=== PATIENT | male | born 1945 | race Caucasian/White ===

== ENCOUNTER 2019-03-19 21:31 | Inpatient (IN) ==
[2019-03-19] MEDS ORDERED: 0.9 % Sodium Chloride 1,000 ML IVC ONE ×2 (22:09→22:10)
--- NOTE | 2019-03-19 22:20 | Emergency Department Note ---
Disposition Clinical Impression: Dehydration, Hypotension, Acute kidney injury Disposition: Still a Patient Condition: Good Time of Disposition: 23:26 General Adult HPI - General Chief complaint: ED General Medical Stated complaint: low blood pressure Time Seen by Provider: 03/19/19 21:39 Source: patient Limitations: no limitations Nursing Notes Reviewed: Yes Vital Signs Reviewed: Yes - History of Present Illness HPI Narrative: Patient is a 74-year-old male who is presenting with weakness and low back press ure. Patient states that he does have history of hypertension, hyperlipidemia. He was outside today [place], he did this all morning, he states that following this he became very fatigued and weak, he states that he took his blood pressure earlier in the day and it was normal, he retook it this afternoon and it was noted to be 80-90 systolic over 50 diastolic. He states is very unusual for him. He does take a lisinopril hydrochlorothiazide medicine, he has been taking this in the morning, he has not taken extra doses. He denies any chest pain, shortness of breath, nausea, vomiting, abdominal pain, lightheaded or dizziness. He denies any syncope or recent trauma or head injury. He denies any recent change in his medications. He states that he has had similar symptoms to this in the past and has had this worked up from a cardiac standpoint and was all negative. Pain Scale: 0 - Related Data Home Medications Medication Instructions Recorded Confirmed Albuterol Sulfate [Proventil 2 puff IH QID PRN 08/24/16 03/20/19 Inhaler] Aspirin 81 mg PO DAILY 08/24/16 03/20/19 Fluticasone Propionate Nasal 2 spray NS DAILY 08/24/16 03/20/19 [Flonase] Lisinopril/Hydrochlorothiazide 1 tab PO QAM 08/24/16 03/20/19 [Zestoretic 20-25 mg Tablet] Methadone 20 mg PO TID 08/24/16 03/20/19 Naloxone [Narcan] 0.4 mg IM AD 08/24/16 03/20/19 Budesonide/Formoterol 160/4.5 2 puff IH BIDR 03/20/19 03/20/19 [Symbicort 160/4.5] Cholecalciferol (Vitamin D3) 1,000 unit PO DAILY 03/20/19 03/20/19 [Vitamin D3] Gabapentin [Neurontin] 1,200 mg PO TID 03/20/19 03/20/19 Ketoconazole Shampoo [Nizoral 1 appl TP Q72H 03/20/19 03/20/19 Shampoo] Magnesium Oxide [Magnesium] 600 mg PO HS 03/20/19 03/20/19 Melatonin 30 mg PO HS 03/20/19 03/20/19 Methadone 7.5 mg PO HS 03/20/19 03/20/19 Methadone 10 mg PO HS 03/20/19 03/20/19 Omeprazole [PriLOSEC] 20 mg PO DAILY 03/20/19 03/20/19 Propylene Glycol/Peg 400 [Systane 1 drop BOTH EYES QID PRN 03/20/19 03/20/19 0.3-0.4% Eye Drops] Sennosides/Docusate Sodium 2 tab PO QPM 03/20/19 03/20/19 [Docusate Sodium-Sennosides Tab] Sildenafil Citrate 100 mg PO AD PRN 03/20/19 03/20/19 Tiotropium [Spiriva] 18 mcg IH QAM 03/20/19 03/20/19 Allergies Allergy/AdvReac Type Severity Reaction Status Date / Time No Known Allergies Allergy Verified 03/20/19 20:58 Review of Systems: In addition to that documented in the HPI above, the additional ROS was obtained: General: Denies fever. Denies chills. Denies weight loss. Denies behavioral change. Affirms generalized fatigue. Eyes: Denies visual changes. ENT: Denies nasal congestion. Denies sore throat. Denies hearing change. Cardio: Denies chest pain. Denies palpitations. Respiratory: Denies cough. Denies shortness of breath. Denies wheezing. GI: Denies nausea, Denies vomiting, or diarrhea. Denies hematochezia denies melena. Denies abdominal pain. : Denies dysuria, hematuria, or urinary retention MSK: Denies back pain. Denies joint swelling. Neuro: Denies slurred speech. Denies numbness or tingling. Denies focal weakness. Denies headache. Denies loss of consciousness. Psych: Denies mood changes. Past Medical History - Past Medical History Medical history: Reports: COPD, hyperlipidemia, hypertension - Social History Smoking Status: Former smoker Smokeless Tobacco Status: No Alcohol use: Reports: none Drug use: Reports: none Physical Exam General: Conversant. No apparent distress. Follow commands. Appears stated age. Neck: No JVD. Trachea midline. Neck supple. Eyes: PERRL. No scleral icterus. HENT: Normocephalic and atraumatic. Moist mucus membranes. Cardiovascular: Regular rate and rhythm. Normal S1 and S2. No murmurs appreciated. Normal capillary refill. Extremities well perfused with 2+ distal pulses bilaterally. No edema. Pulmonary: Normal and equal breath sounds bilaterally, anteriorly and posteriorly. No wheezes, rales, or rhonchi. Not in respiratory distress. Speaks in full sentences. Abdomen: Soft, nondistended, without tenderness. No bruits or masses. No guarding or rebound. Neuro: Alert and oriented x3. No slurred speech. No focal deficits noted. Skin: No rashes noted on visualized skin. Musculoskeletal: No bony abnormalities visualized. Moves all extremities. Psych: Normal mood. Pleasant. Makes appropriate eye contact. - General Limitations: no limitations General appearance: alert Course Vital Signs Temperature 97.6 F 03/19/19 21:32 Pulse Rate 76 03/19/19 21:32 Respiratory Rate 18 03/19/19 21:32 Blood Pressure 100/61 03/19/19 21:32 O2 Sat by Pulse Oximetry 91 03/19/19 21:32 Temperature 97.6 F 03/19/19 21:56 Pulse Rate 65 03/19/19 22:52 Respiratory Rate 18 03/19/19 22:52 Blood Pressure 97/58 03/19/19 22:52 O2 Sat by Pulse Oximetry 95 03/19/19 22:52 Oxygen Delivery Oxygen Delivery Room Air Medical Decision Making - [facility] Narrative Medical decision making narrative: Patient is a 74-year-old male presenting with low blood pressure. 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 Checked his blood pressure later this evening and noted it to be low. He states this is very unusual for him, especially in the setting of fatigue. On arrival, patient does have a low blood pressure with a blood pressure in the room of 85/55, patient currently states that he has fatigue with lightheaded or dizziness, no chest pain or short of breath. Further vitals are otherwise unremarkable. Given patient's exertional activity today, CBC, BMP as well as a CK will be performed. He was also ordered 2 L normal saline. Patient otherwise in no acute distress on my examination. No further abnormality. Patient was signed out to Dr. Almazan and Dr. Shea at 2245, at this point in time, patient has gotten a total of 500 mL of fluid, his blood pressure has been slightly responsive at this point. He remains alert and oriented and stable at this time. Patient's blood work is currently pending. They will follow up on this and provide further management. Please refer to their MDM for disposition. Anticipate if the patient does have significantly elevated CPK, the patient will be admitted for further fluid hydration. - Medical Records Medical records reviewed: Yes I reviewed the patient's medical records. - Lab Data Lab results reviewed: Yes I reviewed the patient's lab results. Result diagrams: 03/21/19 02:48 03/22/19 00:20 Lab Results 03/19/19 03/19/19 Range/Units 22:37 22:37 WBC 11.3 H (4.3-11.1) K/mcL RBC 4.30 (4.19-5.50) M/mcL Hgb 12.6 L (12.9-16.9) g/dL Hct 40.0 (37.5-50.1) % MCV 93.0 (83.0-100.0) fL MCH 29.3 (28.0-33.3) pg MCHC 31.5 L (31.6-35.5) g/dL RDW 13.7 (11.5-14.5) % Plt Count 239 (140-400) K/mcL MPV 11.0 (9.4-12.4) fL Immature Gran % 0.4 (0-4) % Seg Neutrophils % 56.9 % Lymphocytes % 27.7 % Monocytes % 9.2 % Eosinophils % 4.7 % Basophils % 1.1 % Neutrophils # 6.5 (1.6-8.9) K/mcL Lymphocytes # 3.1 (0.6-4.6) K/mcL Monocytes # 1.0 (0.0-1.3) K/mcL Eosinophils # 0.5 (0.0-0.6) K/mcL Basophils # 0.1 (0.0-0.2) K/mcL Sodium 136 (136-145) mEq/L Potassium 3.6 (3.5-5.1) mEq/L Chloride 101 (98-107) mEq/L Carbon Dioxide 23 (23-29) mEq/L BUN 41 H (8-23) mg/dL Creatinine 2.52 H (0.70-1.30) mg/dL Est GFR ( Amer) 30 L (> 60) Est GFR (Non-Af Amer) 25 L (> 60) BUN/Creatinine Ratio 16 (6-26) Glucose 124 H (70-105) mg/dL Calculated Osmolality 294 (280-300) Calcium 8.9 (8.6-10.3) mg/dL Creatine Kinase 679 H (30-223) Units/L S.B.A.R. - S.B.A.R. Situation: Demographics, MOA Background: Presenting Complaint, Relevant PMH, Meds, & Allergies Assessment: Vital Signs, Course and respsone to treatment, Exam Concerns, Patient/Family Expectation, Pertinant Lab Results, Outstanding Labs Recommendation: Barrier(s) to disposition, Recommendation based on pending studies, treatments, or consults S.B.A.R. Report Given to: Dr. Shea and Dr. Almazan S.B.A.R. Repor Time: 23:27 (sign out to ED night team) Attestation Statement - Attestation Attestation: I have seen this patient with the resident physician, I have personally evaluated this patient. I had reviewed the chart and document dictation by the resident physician and aM in agreement with the information documented by the resident physician. Please see documentation by the resident physician for complete chart including past medical history, family medical history, review of systems, current history and physical and laboratory and imaging studies. I was present for all procedures, provided direct supervision for all procedures, was present for the entirety of all procedures and provided direct guidance during the procedures. Please see documentation by the resident physician for any procedures performed. I have reviewed all interpretations of EKGs, and reviewed all EKGs performed on patient's as well. I have also reviewed reports of imaging as provided by radiology.
[2019-03-19 22:54] LABS: Basophils # 0.1 K/mcL (0.0-0.2); Basophils % 1.1 %; Eosinophils # 0.5 K/mcL (0.0-0.6); Eosinophils % 4.7 %; Hemoglobin 12.6 g/dL (12.9-16.9); Immature Granulocytes % 0.4 % (0-4); Lymphocytes # 3.1 K/mcL (0.6-4.6); Lymphocytes % 27.7 %; Mean Corpuscular HGB Conc 31.5 g/dL (31.6-35.5); Mean Corpuscular Hemoglobin 29.3 pg (28.0-33.3); Monocytes % 9.2 %; Neutrophils # 6.5 K/mcL (1.6-8.9); Platelet Count 239 K/mcL (140-400); Red Cell Distribution Width 13.7 % (11.5-14.5); Segmented Neutrophils % 56.9 %; White Blood Count 11.3 K/mcL (4.3-11.1)
--- NOTE | 2019-03-19 22:55 | Emergency Department Note ---
Disposition Clinical Impression: Dehydration, Acute kidney injury Hypotension Qualifiers: Hypotension type: other hypotension type Qualified Code(s): I95.89 - Other hyp otension Disposition: Admitted As Inpatient Condition: Fair [facility] Care Provider[facility] - Forms: ED Satisfaction Letter, Work/School Release Time of Disposition: 23:17 General Adult HPI - General Chief complaint: ED General Medical Stated complaint: low blood pressure Time Seen by Provider: 03/19/19 21:39 Source: patient Limitations: no limitations - History of Present Illness Pain Scale: 0 - Related Data Home Medications Medication Instructions Recorded Confirmed Albuterol Sulfate [Albuterol 2 puff IH Q6H PRN 08/24/16 08/24/16 Inhaler] Aspirin 81 mg PO DAILY 08/24/16 08/24/16 Fluocinonide 1 appl TP BID PRN 08/24/16 08/24/16 Fluorouracil [Carac] 1 appl TP DAILY 08/24/16 08/24/16 Fluticasone Propionate Nasal 2 spray NS DAILY 08/24/16 08/24/16 [Flonase] Ketoconazole Shampoo [Nizoral 1 appl TP Q3D 08/24/16 08/24/16 Shampoo] Lisinopril/Hydrochlorothiazide 1 tab PO QAM 08/24/16 08/24/16 [Zestoretic 20-25 mg Tablet] Melatonin [Melatin] 3 mg PO HS 08/24/16 08/24/16 Methadone 20 mg PO Q8HR PRN 08/24/16 08/24/16 Mometasone/Formoterol [Dulera 200 2 puff IH BID 08/24/16 08/24/16 Mcg/5 Mcg Inhaler] Naloxone [Narcan] 0.4 mg IM AD 08/24/16 08/24/16 Naproxen [Naprosyn] 250 mg PO BID PRN 08/24/16 08/24/16 Olodaterol HCl [Striverdi Respimat] 2 puff IH DAILY 08/24/16 08/24/16 Omeprazole [PriLOSEC] 20 mg PO DAILY 08/24/16 08/24/16 Pregabalin [Lyrica] 150 mg PO BID 08/24/16 08/24/16 Sertraline [Zoloft] 50 mg PO DAILY 08/24/16 08/24/16 Sildenafil Citrate [Viagra] 100 mg PO DAILY PRN 08/24/16 08/24/16 Previous Rx's Medication Instructions Recorded levoFLOXacin [Levaquin] 500 mg PO DAILY #9 tablet 01/29/18 Allergies Allergy/AdvReac Type Severity Reaction Status Date / Time No Known Allergies Allergy Verified 03/19/19 21:32 Past Medical History - Past Medical History Medical history: Reports: COPD, hyperlipidemia, hypertension - Social History Smoking Status: Former smoker Smokeless Tobacco Status: No Alcohol use: Reports: none Drug use: Reports: none Physical Exam - General Limitations: no limitations General appearance: alert Course Vital Signs Temperature 97.6 F 03/19/19 21:32 Pulse Rate 76 03/19/19 21:32 Respiratory Rate 18 03/19/19 21:32 Blood Pressure 100/61 03/19/19 21:32 O2 Sat by Pulse Oximetry 91 03/19/19 21:32 Temperature 97.6 F 03/19/19 21:56 Pulse Rate 65 03/19/19 22:52 Respiratory Rate 18 03/19/19 22:52 Blood Pressure 97/58 03/19/19 22:52 O2 Sat by Pulse Oximetry 95 03/19/19 22:52 Oxygen Delivery Oxygen Delivery Room Air Medical Decision Making - Lab Data Result diagrams: 03/19/19 22:37 03/19/19 22:37 Lab Results 03/19/19 03/19/19 Range/Units 22:37 22:37 WBC 11.3 H (4.3-11.1) K/mcL RBC 4.30 (4.19-5.50) M/mcL Hgb 12.6 L (12.9-16.9) g/dL Hct 40.0 (37.5-50.1) % MCV 93.0 (83.0-100.0) fL MCH 29.3 (28.0-33.3) pg MCHC 31.5 L (31.6-35.5) g/dL RDW 13.7 (11.5-14.5) % Plt Count 239 (140-400) K/mcL MPV 11.0 (9.4-12.4) fL Immature Gran % 0.4 (0-4) % Seg Neutrophils % 56.9 % Lymphocytes % 27.7 % Monocytes % 9.2 % Eosinophils % 4.7 % Basophils % 1.1 % Neutrophils # 6.5 (1.6-8.9) K/mcL Lymphocytes # 3.1 (0.6-4.6) K/mcL Monocytes # 1.0 (0.0-1.3) K/mcL Eosinophils # 0.5 (0.0-0.6) K/mcL Basophils # 0.1 (0.0-0.2) K/mcL Sodium 136 (136-145) mEq/L Potassium 3.6 (3.5-5.1) mEq/L Chloride 101 (98-107) mEq/L Carbon Dioxide 23 (23-29) mEq/L BUN 41 H (8-23) mg/dL Creatinine 2.52 H (0.70-1.30) mg/dL Est GFR ( Amer) 30 L (> 60) Est GFR (Non-Af Amer) 25 L (> 60) BUN/Creatinine Ratio 16 (6-26) Glucose 124 H (70-105) mg/dL Calculated Osmolality 294 (280-300) Calcium 8.9 (8.6-10.3) mg/dL Creatine Kinase 679 H (30-223) Units/L Attestation Statement - Attestation Attestation: Care of patient assumed from at 22:55 pending labs and reassessment. The patient presented with hypotension and fatigue after outdoor exposure today. Labs pending. 23:18: Labs indicate acute kidney injury. IV hydration ongoing. Will admit
--- NOTE | 2019-03-19 22:58 | Emergency Department Note ---
Disposition Clinical Impression: Dehydration, Hypotension Disposition: Still a Patient [facility]errals: [facility] [Primary Care Provider[facility] - Forms: ED Satisfaction Letter, Work/School Release Time of Disposition: 22:58 General Adult HPI - General Chief complaint: ED General Medical Stated complaint: low blood pressure Time Seen by Provider: 03/19/19 21:39 Source: patient Limitations: no limitations - History of Present Illness Pain Scale: 0 - Related Data Home Medications Medication Instructions Recorded Confirmed Albuterol Sulfate [Albuterol 2 puff IH Q6H PRN 08/24/16 08/24/16 Inhaler] Aspirin 81 mg PO DAILY 08/24/16 08/24/16 Fluocinonide 1 appl TP BID PRN 08/24/16 08/24/16 Fluorouracil [Carac] 1 appl TP DAILY 08/24/16 08/24/16 Fluticasone Propionate Nasal 2 spray NS DAILY 08/24/16 08/24/16 [Flonase] Ketoconazole Shampoo [Nizoral 1 appl TP Q3D 08/24/16 08/24/16 Shampoo] Lisinopril/Hydrochlorothiazide 1 tab PO QAM 08/24/16 08/24/16 [Zestoretic 20-25 mg Tablet] Melatonin [Melatin] 3 mg PO HS 08/24/16 08/24/16 Methadone 20 mg PO Q8HR PRN 08/24/16 08/24/16 Mometasone/Formoterol [Dulera 200 2 puff IH BID 08/24/16 08/24/16 Mcg/5 Mcg Inhaler] Naloxone [Narcan] 0.4 mg IM AD 08/24/16 08/24/16 Naproxen [Naprosyn] 250 mg PO BID PRN 08/24/16 08/24/16 Olodaterol HCl [Striverdi Respimat] 2 puff IH DAILY 08/24/16 08/24/16 Omeprazole [PriLOSEC] 20 mg PO DAILY 08/24/16 08/24/16 Pregabalin [Lyrica] 150 mg PO BID 08/24/16 08/24/16 Sertraline [Zoloft] 50 mg PO DAILY 08/24/16 08/24/16 Sildenafil Citrate [Viagra] 100 mg PO DAILY PRN 08/24/16 08/24/16 Previous Rx's Medication Instructions Recorded levoFLOXacin [Levaquin] 500 mg PO DAILY #9 tablet 01/29/18 Allergies Allergy/AdvReac Type Severity Reaction Status Date / Time No Known Allergies Allergy Verified 03/19/19 21:32 Past Medical History - Past Medical History Medical history: Reports: COPD, hyperlipidemia, hypertension - Social History Smoking Status: Former smoker Smokeless Tobacco Status: No Alcohol use: Reports: none Drug use: Reports: none Physical Exam - General Limitations: no limitations General appearance: alert Course Vital Signs Temperature 97.6 F 03/19/19 21:32 Pulse Rate 76 03/19/19 21:32 Respiratory Rate 18 03/19/19 21:32 Blood Pressure 100/61 03/19/19 21:32 O2 Sat by Pulse Oximetry 91 03/19/19 21:32 Temperature 97.6 F 03/19/19 21:56 Pulse Rate 65 03/19/19 22:52 Respiratory Rate 18 03/19/19 22:52 Blood Pressure 97/58 03/19/19 22:52 O2 Sat by Pulse Oximetry 95 03/19/19 22:52 Oxygen Delivery Oxygen Delivery Room Air Medical Decision Making - Lab Data Result diagrams: 03/19/19 22:37 Lab Results 03/19/19 Range/Units 22:37 WBC 11.3 H (4.3-11.1) K/mcL RBC 4.30 (4.19-5.50) M/mcL Hgb 12.6 L (12.9-16.9) g/dL Hct 40.0 (37.5-50.1) % MCV 93.0 (83.0-100.0) fL MCH 29.3 (28.0-33.3) pg MCHC 31.5 L (31.6-35.5) g/dL RDW 13.7 (11.5-14.5) % Plt Count 239 (140-400) K/mcL MPV 11.0 (9.4-12.4) fL Immature Gran % 0.4 (0-4) % Seg Neutrophils % 56.9 % Lymphocytes % 27.7 % Monocytes % 9.2 % Eosinophils % 4.7 % Basophils % 1.1 % Neutrophils # 6.5 (1.6-8.9) K/mcL Lymphocytes # 3.1 (0.6-4.6) K/mcL Monocytes # 1.0 (0.0-1.3) K/mcL Eosinophils # 0.5 (0.0-0.6) K/mcL Basophils # 0.1 (0.0-0.2) K/mcL Attestation Statement - Attestation Attestation: I have seen this patient with the resident physician, I have personally evaluated this patient. I had reviewed the chart and document dictation by the resident physician and aM in agreement with the information documented by the resident physician. Please see documentation by the resident physician for complete chart including past medical history, family medical history, review of systems, current history and physical and laboratory and imaging studies. I was present for all procedures, provided direct supervision for all procedures, was present for the entirety of all procedures and provided direct guidance during the procedures. Please see documentation by the resident ph ysician for any procedures performed. I have reviewed all interpretations of EKGs, and reviewed all EKGs performed on patient's as well. I have also reviewed reports of imaging as provided by radiology. Patient presented to the emergency department with chief complaint of generalized weakness and low blood pressure home. 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 Patient states that this has happened in the past and [facility] The patient denies any focal symptoms. He denies chest pain shortness of breath. Denies fevers or chills. Denies abdominal pain nausea or vomiting. Upon arrival, initial blood pressure was 100/61 although it did decrease to 73/47 without any tachycardia without any change in mental status, he had IVs established, fingerstick checked which was within acceptable limits, 2 L of IV fluids were ordered. CBC basic metabolic profile total CPK were ordered. At the time of this dictation patient was signed out to Dr. Irwin, all labs were pending, blood pressures had increased on 3 subsequent blood pressure readings to 98/60, with a map of 72. Please see documentation by my colleague for follow-up evaluations and laboratory studies.
[2019-03-19 23:16] LABS: Calcium 8.9 mg/dL (8.6-10.3); Potassium 3.6 mEq/L (3.5-5.1)
[2019-03-20] MEDS ORDERED: Naloxone 0.4 MG/ML INJ IVP PRN (03:39)
[2019-03-20] MEDS ORDERED: 0.9 % Sodium Chloride 1,000 ML IVC ONE (03:42)
[2019-03-20 04:50] LABS: Hematocrit 37.9 % (37.5-50.1); Mean Corpuscular HGB Conc 31.7 g/dL (31.6-35.5); Mean Corpuscular Hemoglobin 29.3 pg (28.0-33.3); Mean Corpuscular Volume 92.4 fL (83.0-100.0); Platelet Count 206 K/mcL (140-400); Red Cell Distribution Width 13.5 % (11.5-14.5); White Blood Count 8.5 K/mcL (4.3-11.1)
--- NOTE | 2019-03-20 05:05 | Internal Med History&Physical ---
Date of Encounter: 03/20/19 Time of Encounter: 04:03 Internal Medicine - H&P: HPI Chief complaint: Acute kidney injury Admitted From: Emergency Dept Plans for Post Hospital Care: Home History of present illness: Mr. Anderson is a 74 year old male Patient presented to the emergency room after experiencing weakness and low blood pressure at home. He typically has high blood pressure and checks his blood pressure regularly. 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 He takes lisinopril and hydrochlorothiazide for his blood pressure. He takes both of these every morning at 7 AM. He checked his blood pressure and it was 80/40, after he had been outside for most of the day. This concerned him, so he decided to come to the emergency room for further evaluation. In the emergency room patient's initial vital signs demonstrated a blood pressure of 100/61 and a pulse of 76. Patient is afebrile. CBC within normal limits BMP was notable for an elevated creatinine of 2.52, B1 of 41 and a GFR of 25. He also had a CK of 679. Patient was given 2 L of IV fluids, and admitted to the hospital for further observation. Upon my evaluation, patient is resting comfortably in hospital bed in no acute distress. He denies chest pain, abdominal pain, nausea, vomiting, diarrhea and constipation. He states that he had been drinking water while he was outside yesterday. He says usually his blood pressure runs about 120 systolic over 70's. He has significant family medical history of heart disease on the underside of the family, and his father at a young age from lung cancer. He is a full code. Past Med Surg Social Fam HX - Past Medical History Medical history: COPD, hyperlipidemia, hypertension Additional medical history: chronic back pain - Past Surgical History Additional surgical history: lithotripsy - Social History Smoking Status: Former smoker Smokeless Tobacco Status: No Alcohol use: none Drug use: none - Family History Mother Living Status: Hx Family Cardiac Disorders: No Hx Family Respiratory Disorders: No Hx Family Cancer: No Hx Family GI Disorders: No Hx Family Genitourinary Disorders: No Hx Family Endocrine Disorder: No Hx Family Musculoskeletal Disorders: No Hx Family Neuromuscular Disorders: No Hx Family Neurologic Disorders: No Hx Family HEENT Disorders: No Hx Family Autoimmune Disorders: No Hx Family Reproductive Disorders: No Hx Family Psychosocial Disorders: No Hx Family Medical Disorders: No Father Hx Family Cancer: Yes (lung ca) Internal Medicine - H&P: Meds Albuterol Sulfate [Albuterol Inhaler] 2 puff IH Q6H PRN 08/24/16 [History] Aspirin 81 mg PO DAILY 08/24/16 [History] Fluticasone Propionate Nasal [Flonase] 2 spray NS DAILY 08/24/16 [History] Lisinopril/Hydrochlorothiazide [Zestoretic 20-25 mg Tablet] 1 tab PO QAM 08/24/16 [History] Methadone 20 mg PO Q8HR PRN 08/24/16 [History] Naloxone [Narcan] 0.4 mg IM AD 08/24/16 [History] Olodaterol HCl [Striverdi Respimat] 2 puff IH DAILY 08/24/16 [History] Gabapentin [Neurontin] 1,200 mg PO TID 03/20/19 [History] Allergy/AdvReac Type Severity Reaction Status Date / Time No Known Allergies Allergy Verified 03/19/19 21:32 All Systems PM: A 10-system review of systems was performed and is negative for pertinent findings except as documented above in the HPI. - Constitutional Vitals: Temp Pulse Resp BP Pulse Ox 98.2 F 63 16 93/52 94 03/20/19 03:14 03/20/19 03:14 03/20/19 03:14 03/20/19 03:14 03/20/19 03:14 General appearance: Present: cooperative, A&O X 3, pleasant, no acute distress, answers questions appropriately Exam: - - Head Head exam: Present: normal inspection - Eye Eye exam: Present: EOMI, normal appearance - Respiratory Respiratory exam: Present: CTAB. Absent: rales, respiratory distress, rhonchi, wheezes - Cardiovascular Cardiovascular exam: Present: RRR. Absent: diastolic murmur, systolic murmur - GI/Abdominal GI/Abdominal exam: Present: normal bowel sounds, soft. Absent: tenderness - Extremities Exam Extremities exam: Present: warm, radial pulses palpable and symmetrical. Absent: calf tenderness, pedal edema, tenderness - Neurological Exam Neurological exam: Present: no focal deficits, strengths equal and symetr throughout. Absent: motor sensory deficit, facial droop, speech deficit - Skin Skin exam: Present: dry, normal color, warm Internal Med - H&P Results - Labs CBC & Chem 7: 03/20/19 03:48 03/19/19 22:37 Labs: Short CBC 03/19/19 03/20/19 Range/Units 22:37 03:48 WBC 11.3 H 8.5 (4.3-11.1) K/mcL Hgb 12.6 L 12.0 L (12.9-16.9) g/dL Hct 40.0 37.9 (37.5-50.1) % Plt Count 239 206 (140-400) K/mcL Neutrophils # 6.5 (1.6-8.9) K/mcL BMP 03/19/19 22:37 Sodium 136 Potassium 3.6 Chloride 101 Carbon Dioxide 23 BUN 41 H Creatinine 2.52 H Glucose 124 H Calcium 8.9 - Assessment and Plan (1) Acute kidney injury Current Visit: Yes Status: Acute Assessment and plan: Elevated creatinine of 2.52. Patient denies history of kidney disease. Has been outside, could be secondary to prerenal dehydration. Patient received 2 L of IV fluids in the emergency room. Urinalysis ordered, but has yet to be collected. Continue IV fluid hydration Repeat labs in the morning including creatine kinase Obtain urinalysis Retroperitoneal ultrasound in the morning (2) Dehydration Current Visit: Yes Status: Acute Assessment and plan: Patient was out working in the warm weather. He says he was drinking water, however. Kidney injury could be secondary to dehydration. Still awaiting urinalysis. Follow-up urinalysis Continue IV fluid hydration Repeat labs in the morning (3) Hypotension Current Visit: Yes Status: Acute Assessment and plan: Patient's blood pressures since arrival have remained in the 90 systolic to 100 systolic. Cardiac monitoring Continue IV fluid hydration Obtain orthostatic blood pressures Continue to monitor Hold home blood pressure medicines Qualifiers: Hypotension type: unspecified hypotension type Qualified Code(s): I95.9 - Hypotension, unspecified (4) DVT prophylaxis Current Visit: Yes Status: Acute Assessment and plan: SCDs - Time Spent With Patient Total time spent is greater than 50% in coordination of care (as documented) at patient's floor/unit and/or counseling patient: Greater than 35 minutes
[2019-03-20 05:10] LABS: Calcium 8.4 mg/dL (8.6-10.3); Potassium 3.7 mEq/L (3.5-5.1)
[2019-03-20] MEDS ORDERED: Naloxone 0.4 MG/ML INJ IM SCH (07:45)
[2019-03-20] MEDS: Aspirin 81 MG TAB.CHEW PO SCH (08:25)
[2019-03-20] MEDS: Olodaterol Hcl [Striverdi Respimat] IH SCH (08:25)
[2019-03-20] MEDS: Fluticasone Propionate Nasal 50 MCG/SPRAY BOTTLE NS SCH (08:25)
[2019-03-20] MEDS: *HR* Methadone 10 MG TABLET PO PRN (20:52)
[2019-03-21 03:17] LABS: Hematocrit 39.8 % (37.5-50.1); Hemoglobin 12.6 g/dL (12.9-16.9); Mean Corpuscular HGB Conc 31.7 g/dL (31.6-35.5); Mean Corpuscular Hemoglobin 29.7 pg (28.0-33.3); Mean Corpuscular Volume 93.9 fL (83.0-100.0); Platelet Count 238 K/mcL (140-400); Red Blood Count 4.24 M/mcL (4.19-5.50); Red Cell Distribution Width 13.5 % (11.5-14.5); White Blood Count 8.4 K/mcL (4.3-11.1)
[2019-03-21 03:33] LABS: BUN/Creatinine Ratio 23 (6-26); Blood Urea Nitrogen 25 mg/dL (8-23); Calcium 8.8 mg/dL (8.6-10.3); Carbon Dioxide 27 mEq/L (23-29); Chloride 104 mEq/L (98-107); Creatine Kinase 319 Units/L (30-223); Glucose 128 mg/dL (70-105); Osmolality,Calculated 300 (280-300); Sodium 142 mEq/L (136-145); eGFR For African Americans > 60 (> 60); eGFR For Non-African Americans > 60 (> 60)
[2019-03-21] MEDS ORDERED: [UNRECOGNIZED DRUG - OTHER] BOTH EYES PRN (09:32)
[2019-03-21] MEDS ORDERED: PEG BOTH EYES PRN (09:32)
[2019-03-21] MEDS ORDERED: PROPYLENE GLYCOL BOTH EYES PRN (09:32)
--- NOTE | 2019-03-21 09:32 | Internal Med Progress Note ---
Hospitalist Progress Note - Encounter Date of Encounter: 03/21/19 Time of Encounter: 09:30 - Subjective Interval History: PT seen and examined in the room. he has no acute distress, he denies chest pain, shortness breath, or palpitation. - Exam Vitals: Temp Pulse Resp BP Pulse Ox 98.0 F 59 16 132/61 92 03/21/19 06:50 03/21/19 06:50 03/21/19 06:50 03/21/19 06:50 03/21/19 06:50 Exam: PHYSICAL EXAMINATION: GENERAL APPEARANCE: The patient is alert, oriented and in no acute distress. HEENT: Head is normocephalic. The sinuses are nontender. Pupils are equal and reactive. The nares are patent. Oropharynx clear without lesions. NECK: Supple without lymphadenopathy. HEART: Regular rate and rhythm. LUNGS: No crackles or wheezes are heard. ABDOMEN: Soft, nontender, nondistended with good bowel sounds heard. Inguinal area is normal. EXTREMITIES: Without cyanosis, clubbing or edema. NEUROLOGICAL: Gross nonfocal. SKIN: Warm and dry without any rash. - Assessment and Plan (1) Acute kidney injury Current Visit: Yes Status: Acute Assessment and Plan: 03/20 Elevated creatinine of 2.52. Patient denies history of kidney disease. Has been outside, could be secondary to prerenal dehydration. Patient received 2 L of IV fluids in the emergency room. Urinalysis ordered, but has yet to be collected. Continue IV fluid hydration Repeat labs in the morning including creatine kinase Obtain urinalysis Retroperitoneal ultrasound in the morning. 03/21 Cr 2.52->1.71->1.10. US renal unremarkable. Still having elevated BUN 25 and CK 319, will continue to hydrate the patient. Plan discharge tomorrow. (2) Dehydration Current Visit: Yes Status: Acute Assessment and Plan: Improving, continue hydration, plan DC in the morning. (3) Hypotension Current Visit: Yes Status: Resolved (4) DVT prophylaxis Current Visit: Yes Status: Acute Assessment and Plan: SCDs - Time Spent with Patient Total time spent is greater than 50% in coordination of care (as documented) at patient's floor/unit and/or counseling patient: Greater than 35 minutes Plan of Care Discussed with: patient Internal Medicine: Result - Labs CBC & Chem 7: 03/21/19 02:48 03/21/19 02:48 Labs: Short CBC 03/21/19 Range/Units 02:48 WBC 8.4 (4.3-11.1) K/mcL Hgb 12.6 L (12.9-16.9) g/dL Hct 39.8 (37.5-50.1) % Plt Count 238 (140-400) K/mcL BMP 03/21/19 02:48 Sodium 142 Potassium 4.0 Chloride 104 Carbon Dioxide 27 BUN 25 H Creatinine 1.10 Glucose 128 H Calcium 8.8 - Impressions Impressions Retroperitoneum Ultrasound 03/20/19 16:30 IMPRESSION: Unremarkable ultrasound of the kidneys and urinary bladder. D/ / Vijay Puente MD / Vijay Puente MD Interpreting Provider: Vijay Puente MD Consult Discharge Plan - Plan [facility]errals: [facility] [Primary Care Provider[facility] - 03/31/19 10:45 am (3) Hypotension Qualifiers: Hypotension type: unspecified hypotension type Qualified Code(s): I95.9 - Hypotension, unspecified
[2019-03-21] MEDS ORDERED: Ketoconazole Shampoo 120 ML BOTTLE TP SCH (09:45)
[2019-03-21] MEDS: Budesonide/Formoterol 160/4.5 1 PUFF INH IH SCH ×3 (10:07→19:43)
[2019-03-21] MEDS ORDERED: Artificial Tears SOLN 15 ML BOTTLE BOTH EYES PRN (10:15)
[2019-03-21] MEDS: Gabapentin 400 MG CAPSULE PO SCH ×3 (10:27→20:07)
[2019-03-21] MEDS: Aspirin 81 MG TAB.CHEW PO SCH (10:27)
[2019-03-21] MEDS: Olodaterol Hcl [Striverdi Respimat] IH SCH (10:28)
[2019-03-21] MEDS: Fluticasone Propionate Nasal 50 MCG/SPRAY BOTTLE NS SCH (10:28)
[2019-03-21] MEDS: *HR* Methadone 10 MG TABLET PO PRN ×2 (12:25→21:41)
[2019-03-21] MEDS ORDERED: Sennosides/Docusate Sodium TABLET PO SCH (18:00)
[2019-03-21] MEDS ORDERED: Magnesium Oxide 400 MG TABLET PO SCH (21:00)
[2019-03-21] MEDS ORDERED: MELATONIN 30 MG PO SCH (21:00)
[2019-03-22 00:34] LABS: Bacteria,Urine None Seen per hpf (None-Few); Bilirubin,Urine Negative (Negative); Blood,Urine Small (Negative); Clarity,Urine Clear (Clear); Color,Urine Yellow (Yellow); Glucose,Urine (UA) Normal (Normal); Hyaline Casts,Urine None Seen per lpf (None-Few); Ketones,Urine Negative (Negative); Leukocyte Esterase,Urine Negative (Negative); Nitrite,Urine Negative (Negative); PH,Urine 5.5 pH Units (5.0-8.0); Protein,Urine Negative (Neg-Trace); Specific Gravity,Urine 1.022 (1.010-1.025); Squamous Epithelial Cell,Urine Few per lpf (None-Few); Urobilinogen,Urine Normal (Normal); WBC,Urine 0-3 per hpf (0-3)
[2019-03-22 01:42] LABS: BUN/Creatinine Ratio 18 (6-26); Blood Urea Nitrogen 17 mg/dL (8-23); Calcium 8.8 mg/dL (8.6-10.3); Carbon Dioxide 27 mEq/L (23-29); Chloride 105 mEq/L (98-107); Creatine Kinase 222 Units/L (30-223); Glucose 153 mg/dL (70-105); Osmolality,Calculated 295 (280-300); Potassium 3.7 mEq/L (3.5-5.1); Sodium 140 mEq/L (136-145); eGFR For African Americans > 60 (> 60); eGFR For Non-African Americans > 60 (> 60)
[2019-03-22] MEDS: *HR* Methadone 10 MG TABLET PO PRN (05:49)
[2019-03-22 07:22] VITALS: BP 121/74
[2019-03-22] MEDS: Budesonide/Formoterol 160/4.5 1 PUFF INH IH SCH (07:37)
--- NOTE | 2019-03-22 08:17 | Discharge Summary ---
- NOTES TO OUTPATIENT PROVIDER Notes to Outpatient Provider: f/u with PCP within a week. Date of Encounter: 03/22/19 Time of Encounter: 08:14 - Discharge Diagnosis (1) Acute kidney injury Priority: Primary Status: Acute (2) Dehydration Priority: Primary Status: Acute (3) Hypotension Priority: Primary Status: Resolved Qualifiers: Hypotension type: unspecified hypotension type Qualified Code(s): I95.9 - Hypotension, unspecified (4) DVT prophylaxis Priority: Primary Status: Acute Hospital course: Mr. Anderson is a 74 year old male presented to the emergency room after experiencing weakness and low blood pressure at home. He typically has high blood pressure and checks his blood pressure regularly. 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 He takes lisinopril and hydrochlorothiazide for his blood pressure. He takes both of these every morning at 7 AM. He checked his blood pressure and it was 80/40, after he had been outside for most of the day. This concerned him, so he decided to come to the emergency room for further evaluation. In the emergency room patient's initial vital signs demonstrated a blood pressure of 100/61 and a pulse of 76. Patient is afebrile. BMP was notable for an elevated creatinine of 2.52, B1 of 41 and a GFR of 25. He also had a CK of 679. Patient was given 2 L of IV fluids, and admitted to the hospital for further observation. He continued to receive supportive care with IV fluid, his conditioning has significantly improved, CK has trended down. With 3 days of treatment, OSWALDO, hypotension, and elevated CK have resolved. Patient is discharged home, educated to hydrate himself when walking outside in hot summer, continue to follow-up with PCP as scheduled. Discharge discussed with: patient Time spent discussing smoking cessation with patient: more than 10 minutes - Time Spent with Patient Total time spent providing and/or coordinating discharge services: Time spent: Greater than 30 minutes - Discharge Medications Prescriptions: Continued Aspirin 81 mg PO DAILY Naloxone [Narcan] 0.4 mg IM AD Methadone 20 mg PO TID Albuterol Sulfate [Albuterol Inhaler] 2 puff IH QID PRN PRN Reason: Shortness Of Breath Lisinopril/Hydrochlorothiazide [Zestoretic 20-25 mg Tablet] 1 tab PO QAM Fluticasone Propionate Nasal [Flonase] 2 spray NS DAILY Gabapentin [Neurontin] 1,200 mg PO TID Tiotropium [Spiriva] 18 mcg IH QAM Sildenafil Citrate 100 mg PO AD PRN PRN Reason: ERECTION Sennosides/Docusate Sodium [Docusate Sodium-Sennosides Tab] 2 tab PO QPM Propylene Glycol/Peg 400 [Systane 0.3-0.4% Eye Drops] 1 drop BOTH EYES QID PRN PRN Reason: Dry Eye(S) Omeprazole [PriLOSEC] 20 mg PO DAILY Methadone 7.5 mg PO HS Melatonin 30 mg PO HS Magnesium Oxide [Magnesium] 600 mg PO HS Ketoconazole Shampoo [Nizoral Shampoo] 1 appl TP Q72H Budesonide/Formoterol 160/4.5 [Symbicort 160/4.5] 2 puff IH BIDR Cholecalciferol (Vitamin D3) [Vitamin D3] 1,000 unit PO DAILY Methadone 10 mg PO HS Home Medications: Albuterol Sulfate [Albuterol Inhaler] 2 puff IH QID PRN 08/24/16 [History] Aspirin 81 mg PO DAILY 08/24/16 [History] Fluticasone Propionate Nasal [Flonase] 2 spray NS DAILY 08/24/16 [History] Lisinopril/Hydrochlorothiazide [Zestoretic 20-25 mg Tablet] 1 tab PO QAM 08/24/16 [History] Methadone 20 mg PO TID 08/24/16 [History] Naloxone [Narcan] 0.4 mg IM AD 08/24/16 [History] Budesonide/Formoterol 160/4.5 [Symbicort 160/4.5] 2 puff IH BIDR 03/20/19 [History] Cholecalciferol (Vitamin D3) [Vitamin D3] 1,000 unit PO DAILY 03/20/19 [History] Gabapentin [Neurontin] 1,200 mg PO TID 03/20/19 [History] Ketoconazole Shampoo [Nizoral Shampoo] 1 appl TP Q72H 03/20/19 [History] Magnesium Oxide [Magnesium] 600 mg PO HS 03/20/19 [History] Melatonin 30 mg PO HS 03/20/19 [History] Methadone 7.5 mg PO HS 03/20/19 [History] Methadone 10 mg PO HS 03/20/19 [History] Omeprazole [PriLOSEC] 20 mg PO DAILY 03/20/19 [History] Propylene Glycol/Peg 400 [Systane 0.3-0.4% Eye Drops] 1 drop BOTH EYES QID PRN 03/20/19 [History] Sennosides/Docusate Sodium [Docusate Sodium-Sennosides Tab] 2 tab PO QPM 03/20/19 [History] Sildenafil Citrate 100 mg PO AD PRN 03/20/19 [History] Tiotropium [Spiriva] 18 mcg IH QAM 03/20/19 [History] Allergies/Adverse Reactions: Allergy/AdvReac Type Severity Reaction Status Date / Time No Known Allergies Allergy Verified 03/20/19 20:58 Date of admission: 03/20/19 12:01 Primary care physician: PCP JAZMINE Anticipated date of discharge: 03/22/19 - Constitutional Vitals: Temp Pulse Resp BP Pulse Ox 97.9 F 64 16 121/74 96 03/22/19 07:19 03/22/19 07:19 03/22/19 07:37 03/22/19 07:19 03/22/19 07:37 General appearance: Present: cooperative, A&O X 3, pleasant, no acute distress, answers questions appropriately Exam: PHYSICAL EXAMINATION: GENERAL APPEARANCE: The patient is alert, oriented and in no acute distress. HEENT: Head is normocephalic. The sinuses are nontender. Pupils are equal and reactive. The nares are patent. Oropharynx clear without lesions. NECK: Supple without lymphadenopathy. HEART: Regular rate and rhythm. LUNGS: No crackles or wheezes are heard. ABDOMEN: Soft, nontender, nondistended with good bowel sounds heard. Inguinal area is normal. EXTREMITIES: Without cyanosis, clubbing or edema. NEUROLOGICAL: Gross nonfocal. SKIN: Warm and dry without any rash. - Patient Status Disposition: Home, Self-Care Condition: Good Functional capacity at discharge: independent ambulation Overall status at discharge: patient is back to baseline - Discharge Instructions Follow Up With: JAZMINE,PCP [Primary Care Provider] - 03/31/19 10:45 am - Diet and Activity Activity: increase activity as tolerated Diet: low fat, low cholesterol, low salt diet
[2019-03-22] MEDS: Gabapentin 400 MG CAPSULE PO SCH (08:50)
[2019-03-22] MEDS: Aspirin 81 MG TAB.CHEW PO SCH (08:51)
[2019-03-22] MEDS: Fluticasone Propionate Nasal 50 MCG/SPRAY BOTTLE NS SCH (08:51)
[2019-03-22] MEDS: Olodaterol Hcl [Striverdi Respimat] IH SCH (08:52)
[2019-03-22] MEDS ORDERED: Cholecalciferol (D-3) 1,000 UNIT TABLET PO SCH (09:00)
[2019-03-22] MEDS ORDERED: Tiotropium 18 MCG inhalation IH SCH (10:00)
== END 2019-03-22 10:23 | disposition home or self-care (01) | DRG 684 ==
LOC: 3BNU 21:31 → EMEROOARM 21:31 → 3BNU 03-20 00:57
PROVIDERS: ADMIT Family Medicine; ATTEND Family Medicine

== ENCOUNTER 2021-02-19 09:03 | Observation (INO) ==
[2021-02-19] MEDS ORDERED: Naloxone 0.4 MG/ML INJ IVP PRN (12:23)
[2021-02-19] MEDS: *HR* Methadone 10 MG TABLET PO PRN ×2 (12:57→21:01)
[2021-02-19] MEDS: 0.9 % Sodium Chloride 1,000 ML IVC SCH (13:01)
[2021-02-19] MEDS: Budesonide/Formoterol 160/4.5 1 PUFF INH IH SCH ×2 (13:06→22:10)
[2021-02-19] MEDS: Ipratropium/Albuterol Neb 3 ML IH SCH ×3 (13:06→22:10)
[2021-02-19] MEDS: Piperacillin/Tazobactam 3.375 GM in 0.9 % Sodium Chloride Mini Bag 100 ML IVPB SCH ×2 (15:08→22:58)
[2021-02-19] MEDS: Ondansetron ODT 4 MG TAB.RAPDIS SL PRN ×2 (15:08→22:58)
[2021-02-19] MEDS ORDERED: Acetaminophen 325 MG TABLET PO PRN (15:09)
[2021-02-19] MEDS ORDERED: Gabapentin 300 MG CAPSULE PO SCH (15:15)
[2021-02-19] MEDS ORDERED: Gabapentin 300 MG CAPSULE PO ONE (15:44)
[2021-02-19] MEDS: Gabapentin 400 MG CAPSULE PO SCH (22:58)
[2021-02-20 01:23] LABS: Basophils # 0.1 K/mcL (0.0-0.2); Basophils % 0.5 %; Eosinophils # 0.2 K/mcL (0.0-0.6); Eosinophils % 1.3 %; Hematocrit 36.4 % (37.5-50.1); Hemoglobin 11.6 g/dL (12.9-16.9); Immature Granulocytes % 0.5 % (0-4); Lymphocytes # 1.5 K/mcL (0.6-4.6); Lymphocytes % 9.7 %; Mean Corpuscular HGB Conc 31.9 g/dL (31.6-35.5); Mean Corpuscular Hemoglobin 29.5 pg (28.0-33.3); Mean Corpuscular Volume 92.6 fL (83.0-100.0); Mean Platelet Volume 10.3 fL (9.4-12.4); Monocytes # 1.4 K/mcL (0.0-1.3); Monocytes % 9.3 %; Neutrophils # 12.1 K/mcL (1.6-8.9); Platelet Count 229 K/mcL (140-400); Red Blood Count 3.93 M/mcL (4.19-5.50); Red Cell Distribution Width 13.5 % (11.5-14.5); Segmented Neutrophils % 78.7 %; White Blood Count 15.4 K/mcL (4.3-11.1)
[2021-02-20 01:43] LABS: BUN/Creatinine Ratio 18 (6-26); Blood Urea Nitrogen 17 mg/dL (8-23); Calcium 8.2 mg/dL (8.6-10.3); Carbon Dioxide 26 mEq/L (23-29); Chloride 101 mEq/L (98-107); Glucose 116 mg/dL (70-105); Osmolality,Calculated 281 (280-300); Potassium 3.7 mEq/L (3.5-5.1); Sodium 134 mEq/L (136-145); eGFR For African Americans > 60 (> 60); eGFR For Non-African Americans > 60 (> 60)
[2021-02-20] MEDS: 0.9 % Sodium Chloride 1,000 ML IVC SCH (01:56)
[2021-02-20] MEDS: Ipratropium/Albuterol Neb 3 ML IH SCH ×3 (03:55→15:27)
[2021-02-20] MEDS: *HR* Methadone 10 MG TABLET PO PRN ×3 (04:08→18:57)
[2021-02-20] MEDS: Gabapentin 400 MG CAPSULE PO SCH ×2 (08:36→15:35)
[2021-02-20] MEDS: Piperacillin/Tazobactam 3.375 GM in 0.9 % Sodium Chloride Mini Bag 100 ML IVPB SCH ×2 (08:37→15:38)
[2021-02-20] MEDS: Ondansetron ODT 4 MG TAB.RAPDIS SL PRN (08:39)
[2021-02-20] MEDS: Budesonide/Formoterol 160/4.5 1 PUFF INH IH SCH (09:58)
[2021-02-20] MEDS: Gabapentin 300 MG CAPSULE PO SCH (19:53)
[2021-02-21] MEDS: Ipratropium/Albuterol Neb 3 ML IH SCH ×5 (00:05→22:46)
[2021-02-21] MEDS: Budesonide/Formoterol 160/4.5 1 PUFF INH IH SCH ×3 (00:05→22:46)
[2021-02-21] MEDS: Piperacillin/Tazobactam 3.375 GM in 0.9 % Sodium Chloride Mini Bag 100 ML IVPB SCH ×2 (00:07→09:31)
[2021-02-21] MEDS: *HR* Methadone 10 MG TABLET PO PRN ×2 (00:33→09:33)
[2021-02-21 07:09] LABS: Basophils # 0.1 K/mcL (0.0-0.2); Basophils % 0.6 %; Eosinophils # 0.3 K/mcL (0.0-0.6); Eosinophils % 3.2 %; Hemoglobin 11.8 g/dL (12.9-16.9); Immature Granulocytes % 0.3 % (0-4); Lymphocytes # 1.5 K/mcL (0.6-4.6); Lymphocytes % 19.1 %; Mean Corpuscular HGB Conc 31.1 g/dL (31.6-35.5); Mean Corpuscular Hemoglobin 29.2 pg (28.0-33.3); Mean Corpuscular Volume 94.1 fL (83.0-100.0); Mean Platelet Volume 10.3 fL (9.4-12.4); Monocytes # 0.9 K/mcL (0.0-1.3); Monocytes % 11.8 %; Platelet Count 230 K/mcL (140-400); Red Blood Count 4.04 M/mcL (4.19-5.50); Red Cell Distribution Width 13.2 % (11.5-14.5)
[2021-02-21 07:10] LABS: White Blood Count 7.7 K/mcL (4.3-11.1)
[2021-02-21 07:21] LABS: BUN/Creatinine Ratio 14 (6-26); Blood Urea Nitrogen 13 mg/dL (8-23); Calcium 8.8 mg/dL (8.6-10.3); Carbon Dioxide 32 mEq/L (23-29); Chloride 102 mEq/L (98-107); Glucose 99 mg/dL (70-105); Osmolality,Calculated 286 (280-300); Potassium 3.9 mEq/L (3.5-5.1); Sodium 138 mEq/L (136-145); eGFR For African Americans > 60 (> 60); eGFR For Non-African Americans > 60 (> 60)
[2021-02-21] MEDS: Gabapentin 300 MG CAPSULE PO SCH ×3 (09:30→20:14)
[2021-02-21] MEDS: Tiotropium 10 INH DOSE IH SCH (09:48)
[2021-02-21] MEDS: *HR* Methadone 10 MG TABLET PO SCH ×2 (17:34→23:56)
[2021-02-21] MEDS ORDERED: cefTRIAXone 1,000 MG in Water for inj. (sterile) 10 ML IVP SCH (18:00)
[2021-02-22] MEDS: Ipratropium/Albuterol Neb 3 ML IH SCH ×2 (03:50→09:57)
[2021-02-22] MEDS: *HR* Methadone 10 MG TABLET PO SCH (05:38)
[2021-02-22 07:25] VITALS: BP 131/73
[2021-02-22] MEDS: Gabapentin 300 MG CAPSULE PO SCH (07:32)
[2021-02-22 08:17] LABS: BUN/Creatinine Ratio 16 (6-26); Blood Urea Nitrogen 13 mg/dL (8-23); Carbon Dioxide 34 mEq/L (23-29); Chloride 104 mEq/L (98-107); Glucose 106 mg/dL (70-105); Osmolality,Calculated 295 (280-300); Potassium 3.8 mEq/L (3.5-5.1); Sodium 142 mEq/L (136-145); eGFR For African Americans > 60 (> 60); eGFR For Non-African Americans > 60 (> 60)
[2021-02-22] MEDS ORDERED: Lisinopril-HCTZ 20-12.5mg TABLET PO SCH (09:00)
[2021-02-22] MEDS: Tiotropium 10 INH DOSE IH SCH (09:58)
[2021-02-22] MEDS: Budesonide/Formoterol 160/4.5 1 PUFF INH IH SCH (09:58)
== END 2021-02-22 11:19 | disposition home or self-care (01) ==
LOC: 2ANU → SUATTDRO 11:37
PROVIDERS: ADMIT Internal Medicine; ATTEND Internal Medicine

== ENCOUNTER 2021-05-28 14:09 | Observation (INO) ==
[2021-05-28] MEDS ORDERED: 0.9 % Sodium Chloride 1,000 ML IVC ONE (14:37)
[2021-05-28 14:53] LABS: Basophils # 0.1 K/mcL (0.0-0.2); Basophils % 0.6 %; Eosinophils % 0.1 %; Hematocrit 42.5 % (37.5-50.1); Hemoglobin 13.3 g/dL (12.9-16.9); Immature Granulocytes % 0.3 % (0-4); Lymphocytes # 1.2 K/mcL (0.6-4.6); Lymphocytes % 10.5 %; Mean Corpuscular HGB Conc 31.3 g/dL (31.6-35.5); Mean Corpuscular Hemoglobin 28.4 pg (28.0-33.3); Mean Corpuscular Volume 90.8 fL (83.0-100.0); Mean Platelet Volume 10.5 fL (9.4-12.4); Monocytes # 1.3 K/mcL (0.0-1.3); Monocytes % 10.9 %; Platelet Count 198 K/mcL (140-400); Red Blood Count 4.68 M/mcL (4.19-5.50); Red Cell Distribution Width 14.3 % (11.5-14.5); Segmented Neutrophils % 77.6 %; White Blood Count 11.6 K/mcL (4.3-11.1)
[2021-05-28 15:12] LABS: Calcium 8.9 mg/dL (8.6-10.3); Potassium 4.1 mEq/L (3.5-5.1)
[2021-05-28 16:05] LABS: Albumin 3.7 g/dL (3.5-5.7); Albumin/Globulin Ratio 1.3 (1.1-2.2); Bilirubin,Direct 0.2 mg/dL (0.0-0.2); Bilirubin,Indirect 0.4 mg/dL (0.0-1.0); Bilirubin,Total 0.6 mg/dL (0.3-1.0); Globulin 2.9 g/dL (2.4-3.5); Total Protein 6.6 g/dL (6.4-8.9)
[2021-05-28] MEDS ORDERED: Naloxone 0.4 MG/ML INJ IVP PRN (17:00)
[2021-05-28] MEDS ORDERED: Melatonin 3 MG TABLET PO PRN (17:00)
[2021-05-28] MEDS ORDERED: Ondansetron ODT 4 MG TAB.RAPDIS SL PRN (17:00)
[2021-05-28] MEDS ORDERED: cefTRIAXone 1,000 MG in Water for inj. (sterile) 10 ML IVP ONE (17:33)
[2021-05-28 18:12] LABS: Bilirubin,Urine Negative (Negative); Blood,Urine Negative (Negative); Clarity,Urine Clear (Clear); Color,Urine Yellow (Yellow); Glucose,Urine (UA) Normal (Normal); Hyaline Casts,Urine Many per lpf (None Seen); Ketones,Urine Trace mg/dL (Negative); Leukocyte Esterase,Urine Trace (Negative); Mucus,Urine Few per lpf (None-Few); Nitrite,Urine Negative (Negative); PH,Urine 5.5 pH Units (5.0-8.0); Protein,Urine 30 mg/dL (Neg-Trace); RBC,Urine 0-3 per hpf (0-3); Specific Gravity,Urine 1.019 (1.010-1.025); Squamous Epithelial Cell,Urine Few per hpf (None-Few); Urobilinogen,Urine Normal (Normal)
[2021-05-28] MEDS: 0.9 % Sodium Chloride 1,000 ML IVC SCH (18:13)
[2021-05-28] MEDS: Acetaminophen 325 MG TABLET PO PRN (20:50)
[2021-05-28 22:55] LABS: Adenovirus Not Detected (Not Detect); Bordetella Pertussis Not Detected (Not Detect); Chlamydophila pneumoniae Not Detected (Not Detect); Coronavirus 229E Not Detected (Not Detect); Coronavirus HKU1 Not Detected (Not Detect); Coronavirus NL63 Not Detected (Not Detect); Coronavirus OC43 Not Detected (Not Detect); Human Metapneumovirus Not Detected (Not Detect); Human Rhinovirus/Enterovirus Not Detected (Not Detect); Influenza A Subtype 2009 H1 Not Detected (Not Detect); Influenza B Not Detected (Not Detect); Mycoplasma pneumoniae Not Detected (Not Detect); Parainfluenza Virus 1 Not Detected (Not Detect); Parainfluenza Virus 2 Not Detected (Not Detect); Parainfluenza Virus 3 Not Detected (Not Detect); Parainfluenza Virus 4 Not Detected (Not Detect); Respiratory Syncytial Virus Not Detected (Not Detect); SARS-CoV-2 Not Detected (Not Detect)
[2021-05-28] MEDS ORDERED: Azithromycin 500 MG in 0.9 % Sodium Chloride 250 ML IVPB ONE (23:24)
[2021-05-29] MEDS: 0.9 % Sodium Chloride 1,000 ML IVC SCH (03:34)
[2021-05-29] MEDS: Acetaminophen 325 MG TABLET PO PRN (03:34)
[2021-05-29 05:44] LABS: Basophils % 0.5 %; Hemoglobin 12.1 g/dL (12.9-16.9); Mean Corpuscular Hemoglobin 28.3 pg (28.0-33.3); Red Blood Count 4.28 M/mcL (4.19-5.50); Red Cell Distribution Width 14.6 % (11.5-14.5)
[2021-05-29 05:46] LABS: Basophils # 0.1 K/mcL (0.0-0.2); Eosinophils % 0.3 %; Hematocrit 38.9 % (37.5-50.1); Immature Granulocytes % 0.5 % (0-4); Immature Platelets 4.8 % (1.1-6.1); Lymphocytes # 1.2 K/mcL (0.6-4.6); Lymphocytes % 9.3 %; Mean Corpuscular HGB Conc 31.1 g/dL (31.6-35.5); Mean Corpuscular Volume 90.9 fL (83.0-100.0); Mean Platelet Volume 10.6 fL (9.4-12.4); Monocytes % 12.5 %; Neutrophils # 9.5 K/mcL (1.6-8.9); Platelet Count 182 K/mcL (140-400); Segmented Neutrophils % 76.9 %; White Blood Count 12.4 K/mcL (4.3-11.1)
[2021-05-29 05:47] LABS: Monocytes # 1.6 K/mcL (0.0-1.3)
[2021-05-29] MEDS ORDERED: *HR* Heparin 5,000 UNIT/ML VIAL SQ SCH (06:00)
[2021-05-29 06:36] LABS: BUN/Creatinine Ratio 23 (6-26); Blood Urea Nitrogen 28 mg/dL (8-23); Calcium 8.2 mg/dL (8.6-10.3); Carbon Dioxide 25 mEq/L (23-29); Chloride 102 mEq/L (98-107); Glucose 105 mg/dL (70-105); Magnesium 1.8 mg/dL (1.6-2.6); Osmolality,Calculated 286 (280-300); Potassium 4.5 mEq/L (3.5-5.1); Sodium 135 mEq/L (136-145); eGFR For African Americans > 60 (> 60); eGFR For Non-African Americans 58 (> 60)
[2021-05-29] MEDS ORDERED: 0.9 % Sodium Chloride 500 ML IVC ONE (06:54)
[2021-05-29] MEDS ORDERED: cefTRIAXone 2,000 MG in Water for inj. (sterile) 20 ML IVP SCH (09:00)
[2021-05-29 11:03] VITALS: BP 101/62; PULSE 72; TEMP 98.4; O2SAT 90
[2021-05-29] MEDS ORDERED: cefTRIAXone 1,000 MG in Water for inj. (sterile) 10 ML IVP ONE (14:35)
== END 2021-05-29 15:00 | disposition home or self-care (01) ==
LOC: EMEROOARM 14:09 → 3BNU 14:09
PROVIDERS: ADMIT Internal Medicine; ATTEND Internal Medicine